=== PATIENT | female | born 1960 | race Caucasian/White ===

== ENCOUNTER 2020-04-29 06:57 | Day surgery (SDC) | payer OTHER ==
[~2020-04-29] VITALS: Ht 157.5 cm; Wt 55.3 kg
[~2020-04-29 06:57] MED LIST: ASCO250CH; Activella 0.5-1 EACH; EPIN.3I; ERGO400; HYDACE5 PO; IBUP600 PO; Ibuprofen Ib200 MG; LORA10; META800 PO; MULT50L
--- NOTE | 2020-04-29 07:27 | NUR ---
04/29/20 0727 Jolanta Herrera 1 TRY RIGHT HAND BLEW
== END 2020-04-29 08:41 | disposition home or self-care (01) ==
LOC: ORSCSDS 06:57
PROVIDERS: Surgery
PROC: 0DBL8ZX Excision of Transverse Colon, Via Natural or Artificial Opening Endoscopic, Diagnostic (ICD-10-PCS; principal; 2020-04-29 08:00)
DX: Z12.11 Encounter for screening for malignant neoplasm of colon (principal); D12.3 Benign neoplasm of transverse colon; K64.8 Other hemorrhoids; K57.30 Diverticulosis of large intestine without perforation or abscess without bleeding; E78.5 Hyperlipidemia, unspecified; Z86.010 Personal history of colon polyps
CPT/HCPCS: 88305; J0461; J2405; J2704; J7120